=== PATIENT | male | born 1995 | race Caucasian/White ===

== ENCOUNTER 2019-01-10 20:01 | Emergency (ER) | payer SELFPAY ==
[~2019-01-10] VITALS: Ht 170.2 cm; Wt 73.9 kg
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
[2019-01-10] MEDS ORDERED: ACETAMINOPHEN ES 500 MG TABLET ONE (20:24)
[2019-01-10] MEDS ORDERED: IBUPROFEN 600 MG TABLET PO ONE ×2 (20:24→20:30)
[2019-01-10] MEDS ORDERED: ACETAMINOPHEN ES 500 MG TABLET PO ONE (20:30)
--- NOTE | 2019-01-10 20:31 | NUR ---
PT REFUSED PAIN MEDICATION AT THIS TIME. PT STATED THAT HE MIGHT TAKE IT LATER. PT IS DRINKING WATER AND TOLERATING PO WELL. PT'S GIRLFRIEND IS AT THE BEDSIDE.
--- NOTE | 2019-01-10 22:12 | NUR ---
Patient discharged to home in stable condition. Written and verbal after care instructions given. Patient verbalizes understanding of instruction. PT AMBULATED OUT WITH A STEADY GAIT. VSS. PT'S GIRLFRIEND IS DRIVING PT HOME. NAD NOTED. RESP EVEN AND UNLABORED.
[2019-01-10 22:14] VITALS: BP 138/84
== END 2019-01-10 22:15 | disposition home or self-care (01) ==
LOC: ER 20:03
DX: M53.3 Sacrococcygeal disorders, not elsewhere classified (principal); M76.02 Gluteal tendinitis, left hip; V43.92XA Unspecified car occupant injured in collision with other type car in traffic accident, initial encounter; Y93.89 Activity, other specified; Y92.413 State road as the place of occurrence of the external cause; Y99.8 Other external cause status
CPT/HCPCS: 72170-TC; 72220-TC